=== PATIENT | male | born 1965 | race Caucasian/White ===

== ENCOUNTER 2017-03-21 02:56 | Emergency (ER) | payer OTHER ==
[2017-03-21] MEDS ORDERED: IV NORMAL SALINE 1,000ML 1,000 ML IV SCH (03:10)
[2017-03-21] MEDS ORDERED: 0.9 % SODIUM CHLORIDE 10 ML DISP.SYRIN. IV PRN (03:15)
[2017-03-21] MEDS ORDERED: ONDANSETRON PF 4 MG/2 ML VIAL. IV ONE (03:15)
--- NOTE | 2017-03-21 03:19 | PHYS DOC ---
Past History Past Medical History: High Cholesterol, Hypertension Past Surgical History: Cholecystectomy, Tonsillectomy Smoking: Cigarettes, Greater than 1 pack/day Alcohol Use: Occasionally Drug Use: None Adult General Chief Complaint Chief Complaint: BACK PAIN OR INJURY [facility] HPI This is a pleasant 51-year-old male who presents with abdominal pain that began about 4 weeks prior to his visit today. It began with an episode of pancreatitis for which she was scheduled for a laparoscopic cholecystectomy. Since that time has had repeated episodes and visits to the ER and admitted to the hospital at [facility] on now 7 separate occasions. His chief complaint and being seen for these ER visits was back pain described as dull and achy with wrapping around to his flanks and abdomen. The pain is continuous with episodes of nausea and vomiting nonbilious nonbloody without diarrhea but more constipation. Patient denies any fevers, chills, recent URI symptoms, problems with urination, hematuria or neurologic complaints. Patient systematically had 5 different CAT scans, HIDA scan that was read as normal that significant biliary leak. Patient also had an EGD done and completed by Dr. White GI he also had a lumbar spine CT and MRI demonstrated no specific abdomen bowel is causing his symptoms. At this juncture patient comes in again today because the oxycodone he's presently on is not helping his pain. He feels very nauseated very weak generally is not able to keep food and fluids down. He says that the pain is worse with direct pressure just inferior to his umbilicus on the left. The pain does not radiate and there is no new symptoms today of shortness of breath or chest pain. Review of Systems Review of Systems Constitutional: Denies fever or chills [] Eyes: Denies change in visual acuity, redness, or eye pain [] HENT: Denies nasal congestion or sore throat [] Respiratory: Denies cough or shortness of breath [] Cardiovascular: No additional information not addressed in HPI [] GI: His main complaint is abdominal pain with nausea and vomiting and constipation without diarrhea. : Denies dysuria or hematuria [] Musculoskeletal: He does complain of chronic back pain but this back pain is progressively worse over last 4 weeks. Integument: Denies rash or skin lesions [] Neurologic: Denies headache, focal weakness or sensory changes [] Endocrine: Denies polyuria or polydipsia [] Current Medications Current Medications Current Medications Medications (Trade) Dose Ordered Sig/Gibran Start Time Stop Time Status Last Admin Dose Admin Ondansetron HCl (Zofran) 4 mg 1X ONCE 03/21/17 03:15 03/21/17 03:16 UNV Sodium Chloride (Normal Saline Flush) 10 ml QSHIFT PRN 03/21/17 03:15 UNV Physical Exam Physical Exam Constitutional: Well developed, well nourished, patient is also comfortable. Try and dehydrated in appearance HENT: Normocephalic, atraumatic, bilateral external ears normal, very dry tacky mucous membranes no oral exudates, nose normal. [] Eyes: PERRLA, EOMI, conjunctiva normal, no discharge. [] Neck: Normal range of motion, no tenderness, supple, no stridor. [] Cardiovascular:Heart rate regular rhythm, no murmur [] Lungs & Thorax: She does have a slight wheeze with exhalation. Abdomen: Patient has normal bowel sounds soft tender 3-4 cm left of the umbilicus. There is no guarding rebound or organomegaly. The wounds from his laparoscopic procedure well healing. Skin: Warm, dry, no erythema, no rash. [] Back: Patient is a tenderness in the mid thoracic and lower lumbar spine nothing midline not reproducible on exam. Extremities: No tenderness, no cyanosis, no clubbing, ROM intact, no edema. [] Neurologic: Alert and oriented X 3, normal motor function, normal sensory function, no focal deficits noted. [] Psychologic: Affect normal, judgement normal, mood normal. [] Current Patient Data Lab Results Laboratory Tests Test 03/21/17 03:13 White Blood Count 11.1 x10^3/uL (4.0-11.0) H Red Blood Count 5.53 x10^6/uL (4.30-5.70) Hemoglobin 16.4 g/dL (13.0-17.5) Hematocrit 47.1 % (39.0-53.0) Mean Corpuscular Volume 85 fL (79-100) Mean Corpuscular Hemoglobin 30 pg (25-35) Mean Corpuscular Hemoglobin Concent 35 g/dL (31-37) Red Cell Distribution Width 13.9 % (11.5-14.5) Platelet Count 216 x10^3/uL (140-400) Neutrophils (%) (Auto) 64 % (31-73) Lymphocytes (%) (Auto) 24 % (24-48) Monocytes (%) (Auto) 9 % (0-9) Eosinophils (%) (Auto) 2 % (0-3) Basophils (%) (Auto) 1 % (0-3) Neutrophils # (Auto) 7.1 x10^3uL (1.8-7.7) Lymphocytes # (Auto) 2.7 x10^3/uL (1.0-4.8) Monocytes # (Auto) 1.0 x10^3/uL (0.0-1.1) Eosinophils # (Auto) 0.2 x10^3/uL (0.0-0.7) Basophils # (Auto) 0.1 x10^3/uL (0.0-0.2) EKG EKG EKG timed 3:[address] Fagan for 03/21/2017 demonstrates normal sinus rhythm heart rate of 85 there is some movement artifact noted in the precordial leads there is no obvious signs of atrial enlargement or ST segment elevation with an ME. [] Radiology/Procedures Radiology/Procedures [] IMAGING REPORT Signed PATIENT: RYAN LY ACCOUNT: [id number] : 1965 LOCATION: [facility] AGE: 51 SEX: M EXAM STATUS: ADM IN ORD. PHYSICIAN: ZULMA POWERS MD REASON: check for bile leak PROCEDURE: NM HEPATOBILIARY SCAN WO EF Exam performed: Nuclear medicine hepatobiliary scan. Indication: Recent cholecystectomy on 02/21/17, abdominal pain, suspected bile leak. Date of Service:03/03/17. Comparison: Intraoperative quadrant from 02/21/[address] abdomen pelvis from 02/24/17. Discussion: Patient was administered 5.0 mCi of technetium 99 M Choletec and sequential images of the abdomen are obtained. The images demonstrate prompt uptake of the radiotracer by the liver with excretion into the biliary channels. The gallbladder is not seen and is surgically absent. There is presence of small bowel activity starting at 20 minutes. No extravasation of radiotracer to suggest biliary leak is noted. Impression: No convincing evidence of biliary leak noted. DICTATED and SIGNED BY: LAVON HOOD MD DATE: 03/03/17 1017 CC: ZULMA POWERS MD; RIAZ GUIDRY APRN; ARIADNA GOVEA MD ~ Course & Med Decision Making Course & Med Decision Making Pertinent Labs and Imaging studies reviewed. (See chart for details) I have reviewed patient's nursing notes, vital signs, HIDA scan, CT scans, EGD report, MRI report, patient has improved pain on evaluation here in the emergency department. Family and I discussed long-term treatment options to include pain management which he has already seen and had an epidural injection in the past several weeks. Which did not work according to patient patient. This pain management physician was not kind to this patient and he will not be following up with him. He does have a neurologist Dr. Valerio who will attempt to call the morning for follow-up appointment. I did speak at length with patient about my concerns with narcotic use and overuse causing him to be accustomed too large of pain medication doses. At this time over the course of his evaluation he is only had one medication dose of Dilaudid his pain is gone from a 10 to a 2 and is still dropping. We talked about adding an anti-inflammatory NSAID to his regiment he already has Valium oxycodone, hydrocodone of which I believe are not going to help him with his chronic back issues. He is agreed to follow- up with his neurologist and a neurosurgeon after he completes his thoracic spine MRI. 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 Disposition: Follow-up with PCP 24-48 hours with neurology, neurosurgery and pain management follow-up. [] Dragon Disclaimer Dragon Disclaimer This chart was dictated in whole or in part using Voice Recognition software in a busy, high-work load, and often noisy Emergency Department environment. It may contain unintended and wholly unrecognized errors or omissions. Departure Departure: Impression: Primary Impression: Chronic low back pain Additional Impressions: Chronic mid back pain Abdominal pain Disposition: 01 HOME, SELF-CARE Condition: IMPROVED Referrals: RIAZ GUIDRY APRN (PCP) Patient Instructions: Abdominal Pain (Nonspecific), Chronic Back Pain Additional Instructions: I have advised patient of my concerns of chronic narcotic use in the treatment of chronic back pain. Patient and family are willing to listen and help patient manages back pain without narcotics if possible. Please follow-up with your neurologist Dr. Valerio and it is 20-24 hrs. Please return for any new or increasing symptoms or if you have any questions or concerns. We discussed not doing any imaging at this point given the fact the patient has had MRI [address] scans EGD and HIDA scan with the last 4 weeks. He accumulated radiation from the scans is detrimental to his health. He presents on increased risk of cancer. Scripts Naproxen (NAPROSYN) 500 Mg Tablet 1 TAB PO BID, #20 TAB 1 Refill Prov: BRANDON FAGAN MD 03/21/17 Problem Qualifiers BRANDON FAGAN MD March 21, 2017 03:19
[2017-03-21 03:31] LABS: BASO # 0.1 x10^3/uL (0.0-0.2); BASO % 1 % (0-3); EOS # 0.2 x10^3/uL (0.0-0.7); EOS % 2 % (0-3); HEMATOCRIT 47.1 % (39.0-53.0); HEMOGLOBIN 16.4 g/dL (13.0-17.5); LYMPH # 2.7 x10^3/uL (1.0-4.8); LYMPH % 24 % (24-48); MEAN CORPUSCULAR HEMOGLOBIN 30 pg (25-35); MEAN CORPUSCULAR HGB CONC 35 g/dL (31-37); MEAN CORPUSCULAR VOLUME 85 fL (79-100); MONO % 9 % (0-9); NEUT # 7.1 x10^3uL (1.8-7.7); NEUT % 64 % (31-73); PLATELET COUNT 216 x10^3/uL (140-400); RED BLOOD COUNT 5.53 x10^6/uL (4.30-5.70); RED CELL DISTRIBUTION WIDTH 13.9 % (11.5-14.5); WHITE BLOOD COUNT 11.1 x10^3/uL (4.0-11.0)
[2017-03-21 03:42] LABS: BACTERIA,URINE 0 /HPF (0-FEW); BILIRUBIN,URINE NEG (NEG); CLARITY,URINE CLEAR; COLOR,URINE YELLOW; GLUCOSE,URINE 250 mg/dL (NEG); NITRITE,URINE NEG (NEG); RBC,URINE OCC /HPF (0-2); SQUAMOUS EPITHELIAL CELL,UR OCC /LPF; UROBILINOGEN,URINE 0.2 mg/dL (0.2 mg/dL); WBC,URINE OCC /HPF (0-4)
[2017-03-21] MEDS ORDERED: HYDROmorphone PF 1 MG/ML DISP.SYRIN ONE (03:46)
[2017-03-21 03:55] LABS: ALBUMIN 3.9 g/dL (3.4-5.0); CALCIUM 10.3 mg/dL (8.5-10.1); CREATININE 0.9 mg/dL (0.7-1.3); GFR 88.3; POTASSIUM 4.4 mmol/L (3.5-5.1); TOTAL BILIRUBIN 0.3 mg/dL (0.2-1.0); TOTAL PROTEIN 7.8 g/dL (6.4-8.2)
[2017-03-21] MEDS ORDERED: HYDROmorphone PF 2 MG/ML VIAL IV ONE (04:00)
[2017-03-21 04:19] VITALS: BP 151/89
[2017-03-21] MEDS ORDERED: NAPR500T PO (04:19)
[2017-03-21] MEDS ORDERED: KETOROLAC 30 MG/ML VIAL. IV ONE (04:30)
--- NOTE | 2017-03-21 06:46 | EKG ---
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
== END 2017-03-21 04:30 | disposition home or self-care (01) ==
LOC: ER 02:56
DX: M54.5 Low back pain (principal); G89.29 Other chronic pain; R10.33 Periumbilical pain; E78.00 Pure hypercholesterolemia, unspecified; I10 Essential (primary) hypertension; F17.210 Nicotine dependence, cigarettes, uncomplicated; Z90.49 Acquired absence of other specified parts of digestive tract
CPT/HCPCS: 36415; 80053; 81001; 82553; 83690; 84484; 85027; 93005; 96361; 96374; 96375; 99285; J1170; J1885; J2405; J7030

== ENCOUNTER 2017-03-30 10:03 | Emergency (ER) | payer OTHER ==
[~2017-03-30 10:03] MED LIST: NAPR500T PO
[2017-03-30 10:46] VITALS: BP 156/83
--- NOTE | 2017-03-30 11:03 | PHYS DOC ---
General Chief Complaint: SEIZURE Stated Complaint: SEIZURE Time Seen by MD: 10:29 Source: patient, family Exam Limitations: no limitations Problems: History of Present Illness Initial Comments Patient is a 51-year-old male with history of seizure disorder brought to the ED with breakthrough seizure. Patient is here with his spouse, they state that while sitting in his recliner watching TV he had a "15 second seizure" observed by family members. No incontinence minor postictal symptoms afterwards, patient did have headache but denies focal weakness. Patient has history of seizure disorder and he follows with Dr. Valerio as his neurologist. He says recently he was changed from Depakote to Lamictal and hasn't had a seizure in greater than 15 years. He's had no head imaging in about that time he says. No unexplained weight loss or night sweats no new or progressive symptoms. No complaints on arrival to the ED no pain nausea or focal weakness confusion or other symptoms. Timing/Duration: 1/2 hour Severity: moderate Modifying Factors: improves with other Associated Symptoms: headaches, seizure Allergies: Coded Allergies: No Known Drug Allergies (Unverified , 03/21/17) Past Medical History Medical History: other (pancreatitis, hyperlipidemia, hypertension, diabetes, seizure) Surgical History: noncontributory (tonsillectomy, cholecystectomy) Social History Smoker: greater than 1 pack/day Alcohol: occasionally Drugs: none Review of Systems Constitutional: see HPI, denies chills, denies fever EENTM: denies eye pain, denies blurred vision, denies ear pain, denies ear discharge, denies nose pain, denies nose congestion, denies throat pain, denies throat swelling Respiratory: denies cough, denies shortness of breath, denies wheezing Cardiovascular: see HPI, denies chest pain, denies palpitations Gastrointestinal: denies abdominal pain, denies diarrhea, denies vomiting Genitourinary: denies dysuria, denies frequency, denies hematuria Musculoskeletal: denies back pain, denies joint swelling, denies neck pain Psychiatric/Neurological: see HPI Physical Exam General Appearance: WD/WN, no apparent distress Eyes: bilateral eye normal inspection, bilateral eye PERRL, bilateral eye EOMI Ear, Nose, Throat: hearing grossly normal, normal ENT inspection, normal pharynx Neck: non-tender, supple Respiratory: normal breath sounds, no respiratory distress Cardiovascular: normal peripheral pulses, regular rate, rhythm Gastrointestinal: non tender, soft Extremities: normal range of motion, non-tender, normal inspection 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 PHYSICIAN: DYLON PINTO DO REASON: breakthru seizure no imaging PROCEDURE: CT HEAD WO CONTRAST CT of the head without contrast, 03/30/2017: History: Seizure, epilepsy The ventricles are within normal limits in size. There is no shift of the midline structures. There is no evidence of acute intracranial hemorrhage or mass effect. IMPRESSION: No acute intracranial abnormality is detected. PQRS Compliance Statement: One or more of the following individualized dose reduction techniques were utilized for this examination: 1. Automated exposure control 2. Adjustment of the mA and/or kV according to patient size 3. Use of iterative reconstruction technique DICTATED AND SIGNED BY: BESSY GREENBERG MD DATE: 03/30/171103 CC: RIAZ GUIDRY APRN; DYLON PINTO DO ~ ED workup is reassuring, lactic acid 10 1229: I discussed the patient with Dr. Valerio patient's neurologist. He requested that we draw a Lamictal level, increase daily Lamictal dosing to 150 mg twice daily, have patient follow-up with him in his office in 3-4 weeks. I discussed this with the patient he is agreeable. Departure Time of Disposition: 12:30 Disposition: 01 HOME, SELF-CARE Diagnosis: breakthrough seizure Condition: STABLE Patient Instructions: Seizure, Adult Additional Instructions: No driving or operating machinery until cleared by your doctor. Increase daily Lamictal dosing to 150 mg twice daily. Follow-up with Dr. Valerio in 3-4 weeks at his office, call to schedule appointment. Return to the ED with new or changing symptoms. DYLON PINTO DO Mar 30, 2017 11:03
--- NOTE | 2017-03-30 11:08 | RAD ---
CT of the head without contrast, 03/30/2017: History: Seizure, epilepsy The ventricles are within normal limits in size. There is no shift of the midline structures. There is no evidence of acute intracranial hemorrhage or mass effect. IMPRESSION: No acute intracranial abnormality is detected. PQRS Compliance Statement: One or more of the following individualized dose reduction techniques were utilized for this examination: 1. Automated exposure control 2. Adjustment of the mA and/or kV according to patient size 3. Use of iterative reconstruction technique
--- NOTE | 2017-03-30 11:09 | ACF ---
Admission Criteria Forms SEIZURE Clinical Indications for Admission to Inpatient Care (Place 'X' for any and all applicable criteria): Admission is indicated for seizure and ANY ONE of the following(1)(2)(3)(4)(5): [ ]I. Inpatient admission required rather than observation care (Also use Seizure: Observation Care Criteria as appropriate) because of ANY ONE of the following: [ ]a) Altered mental status that is severe or persistent [ ]b) New focal neurologic deficit that is severe or persistent [ ]c) Metabolic disorder (eg, hypoglycemia, hyponatremia) that is severe or persistent [ ]d) Recurrent seizure [ ]e) Outpatient antiseizure regimen cannot be established (eg , patient cannot tolerate medication, initiation requires inpatient care) [ ]f) Need for ongoing intravenous infusion of antiseizure medication [ ]g) Cardiac arrhythmias of immediate concern [ ]h) Cerebral bleeding, hydrocephalus, or vasospasm monitoring (14) [ ]i) Increased intracranial pressure or cerebral edema monitoring (15) [ ]j) Other treatment or monitoring requiring inpatient admission [ ]II. Status epilepticus [A] or repetitive seizures not controlled with emergent treatment (6)(8) [ ]III. Brain disorder (eg, tumor, edema, and hydrocephalus) that requiring monitoring or intervention available only at inpatient level of care. [ ]IV. Brain insult (eg, severe trauma, stroke, drug toxicity, or withdrawal) that requires monitoring or intervention available only at inpatient level of care (10)(11) Extended stay beyond goal length of stay may be needed for (22) [ ]a) Complications of status epilepticus [ ]b) Refractory status epilepticus [ ]c) Etiology-specific therapy for conditions such as PEDAL ASSEMBLER infection, head injury,eclampsia, severe metabolic abnormalities, and brain tumor [ ]d) Residual neurologic damage, [ ]e) Initiation of significant change to anticonvulsant treatment [ ]f) Older patients (65 years or older) [ ]g) Patient requiring intubation (eg, to protect airway) The original Incoming [employer] content created by [employer] has been revised. The portions of the content which have been revised are identified through the use of italic text or in bold, and [facility] [employer] has neither reviewed nor approved the modified material. All other unmodified content is copyright [facility] [employer]. Please see references footnoted in the original [facility] edition 2016 RAUDEL HINES Mar 30, 2017 11:09
[2017-03-30 11:10] LABS: HEMATOCRIT 47.3 % (39.0-53.0); HEMOGLOBIN 15.7 g/dL (13.0-17.5); MEAN CORPUSCULAR HEMOGLOBIN 29 pg (25-35); MEAN CORPUSCULAR HGB CONC 33 g/dL (31-37); MEAN CORPUSCULAR VOLUME 87 fL (79-100); PLATELET COUNT 216 x10^3/uL (140-400); RED BLOOD COUNT 5.43 x10^6/uL (4.30-5.70); RED CELL DISTRIBUTION WIDTH 13.7 % (11.5-14.5); WHITE BLOOD COUNT 10.5 x10^3/uL (4.0-11.0)
[2017-03-30 11:18] LABS: GFR 78.2; POTASSIUM 3.8 mmol/L (3.5-5.1)
[2017-03-30 11:53] LABS: % BASOS 1 % (0-3); % EOS 1 % (0-5); % LYMPHS 43 % (24-48); % MONOS 7 % (0-10); % SEGS 48 % (35-66)
[2017-03-30 11:54] LABS: PLT ESTIMATE ADEQUATE (ADEQUATE)
[2017-03-30 12:17] LABS: COLOR,URINE YELLOW
[2017-03-30 12:18] LABS: BILIRUBIN,URINE NEG (NEG); CLARITY,URINE CLEAR; GLUCOSE,URINE NEG (NEG); NITRITE,URINE NEG (NEG); UROBILINOGEN,URINE 0.2 mg/dL (0.2 mg/dL)
[2017-03-30 12:21] LABS: BARBITURATES NEG (NEG); BENZODIAZEPINES POS (NEG); CANNABINOIDS NEG (NEG); COCAINE NEG (NEG); METHADONE NEG (NEG); OPIATES POS (NEG); PHENCYCLIDINE NEG (NEG)
[2017-03-30 12:22] LABS: AMPHETAMINE/METHAMPHETAMINE NEG (NEG)
[2017-03-30 12:26] LABS: BACTERIA,URINE FEW /HPF (0-FEW); HYALINE CASTS, URINE FEW /HPF; RBC,URINE OCC /HPF (0-2); SQUAMOUS EPITHELIAL CELL,UR FEW /LPF
[2017-03-30 12:27] LABS: SPERM,URINE PRESENT /HPF
--- NOTE | 2017-03-30 13:28 | EKG ---
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
== END 2017-03-30 12:35 | disposition home or self-care (01) ==
LOC: ER 10:03
DX: G40.909 Epilepsy, unspecified, not intractable, without status epilepticus (principal); E11.9 Type 2 diabetes mellitus without complications; E78.5 Hyperlipidemia, unspecified; I10 Essential (primary) hypertension; F17.200 Nicotine dependence, unspecified, uncomplicated
CPT/HCPCS: 36415; 70450; 80048; 80175; 80305; 80320; 81001; 82550; 83605; 84484; 85007; 85027; 93005; G0481; 99285-25

== ENCOUNTER 2017-03-30 15:24 | Emergency (ER) | payer OTHER ==
--- NOTE | 2017-03-30 15:48 | PHYS DOC ---
General Chief Complaint: SEIZURE Stated Complaint: SEIZURE Time Seen by MD: 15:31 Source: patient Exam Limitations: no limitations Problems: History of Present Illness Initial Comments Patient is a 51-year-old male presents to the ED by EMS with breakthrough seizure recurrence. Patient was evaluated for breakthrough seizure earlier this morning see my documentation from that visit for further information. After discussing the patient with Dr. Valerio his neurologist the patient was discharged home with an increased dose of Lamictal and instructions to follow-up with Dr. Valerio in his office in 3-4 weeks. Patient states that they picked up his new prescription and he took his new Lamictal dosage and went home. While sitting in the same chair he seized and this morning patient had another short (less than 1 minute) generalized tonic- clonic seizure with spontaneous resolution and a short postictal period. Patient did not lose control of his bowels or bladder and he suffered no injury during the seizure. He complains now only of a mild global headache similar to this morning's no focal weakness he also denies chest pain shortness of breath fever chills sweats myalgias neck stiffness rash. ED vital signs stable Timing/Duration: 1/2 hour Severity: moderate Modifying Factors: improves with other Associated Symptoms: headaches, other Allergies: Coded Allergies: No Known Drug Allergies (Unverified , 03/21/17) Past Medical History Medical History: other (pancreatitis, hyperlipidemia, hypertension, diabetes, seizure, chronic back pain) Surgical History: noncontributory, cholecystectomy, tonsillectomy Social History Smoker: greater than 1 pack/day Alcohol: occasionally Drugs: none Review of Systems Constitutional: denies chills, denies fever, malaise EENTM: denies eye pain, denies blurred vision, denies ear pain, denies nose pain, denies throat swelling Respiratory: denies cough, denies shortness of breath, denies wheezing Cardiovascular: see HPI, denies chest pain, denies palpitations Gastrointestinal: see HPI, denies abdominal pain, denies diarrhea, denies vomiting Musculoskeletal: see HPI, denies muscle stiffness, denies neck pain Psychiatric/Neurological: see HPI, denies numbness, denies paresthesia, denies tingling, denies weakness Physical Exam General Appearance: WD/WN, no apparent distress Eyes: bilateral eye normal inspection, bilateral eye PERRL, bilateral eye EOMI Ear, Nose, Throat: hearing grossly normal, normal ENT inspection, normal pharynx Neck: non-tender, supple Respiratory: normal breath sounds, no respiratory distress Cardiovascular: normal peripheral pulses, regular rate, rhythm Gastrointestinal: non tender, soft Back: no CVA tenderness, no vertebral tenderness Extremities: non-tender, normal inspection 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 Valerio his neurologist. After discussing another breakthrough seizure Dr. Valerio requests that the patient come to his office for evaluation 10:15 tomorrow morning. In the interim he requests we give 7.5 mg by mouth of Tranxene and sent him with a prescription for this medication twice daily. He wanted to stress that the patient needs to doses today. Further breakthrough seizures consistent with these can be managed at home, he requests patient call 911 if seizures last more than 2 minutes. I discussed this with the patient he expressed agreement and understanding. Again I advised the patient to discontinue tobacco abuse. 1601: Tranxene is not available at this facility, pharmacy recommends lorazepam 1 mg as substitute. Departure Time of Disposition: 15:57 Disposition: 01 HOME, SELF-CARE Diagnosis: breakthrough seizure, tobaccoism Condition: STABLE Patient Instructions: Seizure, Adult, [id number], Smokeless Tobacco Use Additional Instructions: Remaining with a responsible adult at all times tonight and until neurology follow-up. Stop smoking significant medical assistance if necessary. Aggressive hydration with Gatorade or water. [id number] Tylenol as needed for discomfort. Prescription: Tranxene 7.5 mg take 1 twice daily in addition to your currently prescribed medications. No swimming, driving or operating machinery until cleared by neurology. Follow-up with Dr. Valerio at his office tomorrow morning at 10:15. Return to the ED with new or changing symptoms DYLON PINTO DO Mar 30, 2017 15:48
[2017-03-30 16:02] VITALS: BP 148/80
[2017-03-30] MEDS ORDERED: LORazepam 1 MG TABLET PO ONE (16:30)
== END 2017-03-30 16:27 | disposition home or self-care (01) ==
LOC: ER 15:24
DX: G40.89 Other seizures (principal); E11.9 Type 2 diabetes mellitus without complications; I10 Essential (primary) hypertension; E78.5 Hyperlipidemia, unspecified; G89.29 Other chronic pain; F17.200 Nicotine dependence, unspecified, uncomplicated
CPT/HCPCS: 99283; 99284

== ENCOUNTER → 2017-04-05 | Outpatient (CLI) | payer OTHER ==
[2017-03-30 16:02] VITALS: BP 148/80
== END | disposition home or self-care (01) ==
LOC: LAB 14:51
PROVIDERS: ATTEND Psychiatry & Neurology Neurology with Special Qualifications in Child Neurology
DX: G40.309 Generalized idiopathic epilepsy and epileptic syndromes, not intractable, without status epilepticus (principal)
CPT/HCPCS: 36415; 80175

== ENCOUNTER 2017-04-10 03:28 | Emergency (ER) | payer OTHER ==
[2017-04-10 03:50] VITALS: BP 130/83
[2017-04-10] MEDS ORDERED: KETOROLAC 30 MG/ML VIAL. IM ONE (04:30)
--- NOTE | 2017-04-10 04:34 | PHYS DOC ---
Past History Past Medical History: Diabetes, High Cholesterol, Hypertension, Pancreatitis, Seizure, Other Past Surgical History: Cholecystectomy, Tonsillectomy, Other Smoking: Cigarettes, Greater than 1 pack/day Alcohol Use: None Drug Use: None Adult General Chief Complaint Chief Complaint: BACK PAIN - NO INJURY HPI HPI Patient is a 51-year-old gentleman who presents here today complaining of lower thoracic pain. Patient reports she's had this pain for over a month at this point. Patient reports that they removed his gallbladder approximately a month ago and has been having pain to his lower thoracic spine since then. Patient reports she's had multiple visits to multiple hospitals in order to help determine what is causing this pain. Patient appears to be admitted multiple times at [facility] for pain management. Patient has been seen by electrostatic paint operator while at [facility]. Patient has declined injections in the past. Patient had an MRI of his lumbar spine during his last admission to [facility] and was unremarkable. Patient appears to have an extensive workup including multiple CT scans of his abdomen and pelvis over the last month in order to determine the cause of his pain and no one has been able to figure out the etiology as of yet. Patient presented to [facility] emergency department on April 09, yesterday, and had an extensive workup including labs and a CT scan of his abdomen pelvis all of which were negative. Patient was given a milligram of IV Dilaudid and was discharged home with a prescription of morphine tablets. Patient reports he never filled morphine tablets. Patient came to [facility] ER at approximately 20 3:30 in the morning for further evaluation and assistance with his back pain. Patient reports he did not fill his prescription for morphine because there are no point prior pharmacies around [facility]. Patient did not have a clear explanation as to why he was at [facility] earlier today and did not get his prescription filled while he was in that area. It is also unclear to me why he is at [facility] tonight instead of returning back to [facility] ER where he was at approximately 6 hours ago. In reviewing the patient's K tracks, it appears that he is had approximately 6 different prescriptions for narcotics by 6 different healthcare providers over the last month. I discussed with the patient my huge concern for the potential for narcotic addiction given his pattern of medication prescriptions and the number physicians for managing his chronic pain at this point. Patient became extremely agitated and aggressive and upset that he was being accused of being a "dope addict" from that point forward during her conversation and became extremely confrontational from the patient since he was not able to get beyond the fact that I was concerned that he was developing patterns that would be consistent with someone who is starting to become addicted to narcotics. Although I believe the patient truly does have pain I believe his approach to his pain management least with high risk to become addicted to narcotics. I have attempted to relay this to the patient however every time we have a discussion regarding this he gets extremely agitated and upset and will not listen to anything at this a thereafter. During my conversation with him the patient stood up and said he will leave and he will go get his prescription and get it filled. I stopped the patient the hallway and recommended that I give him a shot of Toradol to initiate treatment of this pain prior to him being discharged. Patient was in agreement with this and went back to his room. During my reevaluation of his chart and putting in a prescription for the Toradol the patient walked at the ER without notifying staff. Patient currently denies any fevers shakes chills nausea vomiting or diarrhea. Patient denies any chest pain or shortness of breath. Patient reports she is tolerating by mouth's. Patient denies any weakness in his upper or lower extremities. Patient is pacing back and forth in the room and appears to be uncomfortable. Patient denies any loss of bowel or bladder function. Patient's physical exam is unremarkable except for his appearance of being in pain. Patient does appear to be uncomfortable due to his back pain. Patient is pacing back and forth in the room. Patient's lungs were clear with no wheezing rales or rhonchi. Patient's heart was regular rate. Patient's abdomen was soft nontender no rebound or guarding. The remainder of the exam was limited secondary to the patient leaving the ER without completing his evaluation. Patient had a nonfocal neuro exam. Review of Systems Review of Systems Constitutional: Denies fever or chills [] Eyes: Denies change in visual acuity, redness, or eye pain [] All other review systems are negative except as documented in the history of present illness portion. Current Medications Current Medications Current Medications Medications (Trade) Dose Ordered Sig/Gibran Start Time Stop Time Status Last Admin Dose Admin Ketorolac Tromethamine (Toradol) 30 mg 1X ONCE 04/10/17 04:30 04/10/17 04:31 Allergies Allergies Allergies Coded Allergies Type Severity Reaction Last Updated Verified No Known Drug Allergies 03/21/17 No Physical Exam Physical Exam Constitutional: Well developed, well nourished, no acute distress, non-toxic appearance. [] HENT: Normocephalic, atraumatic, bilateral external ears normal, oropharynx moist, no oral exudates, nose normal. [] Cardiovascular:Heart rate regular rhythm, Lungs & Thorax: Bilateral breath sounds clear to auscultation [] [] Skin: Warm, dry, no erythema, no rash. [] Extremities: No tenderness, Neurologic: Alert and oriented X 3, normal motor function, normal sensory function, no focal deficits noted. [] Psychologic: Affect normal, Current Patient Data Vital Signs Vital Signs Date Time Temp Pulse Resp B/P (MAP) Pulse Ox O2 Delivery O2 Flow Rate FiO2 04/10/17 03:50 98.4 97 20 98 Room Air EKG EKG [] Radiology/Procedures Radiology/Procedures [] Course & Med Decision Making Course & Med Decision Making Pertinent Labs and Imaging studies reviewed. (See chart for details) [] Dragon Disclaimer Dragon Disclaimer This chart was dictated in whole or in part using Voice Recognition software in a busy, high-work load, and often noisy Emergency Department environment. It may contain unintended and wholly unrecognized errors or omissions. Departure Departure: Impression: Primary Impression: Chronic mid back pain Disposition: 07 AGAINST MEDICAL ADVICE Condition: STABLE Referrals: RIAZ GUIDRY APRN (PCP) SONJA ABDI MD Apr 10, 2017 04:34
== END 2017-04-10 04:05 | disposition left against medical advice (07) ==
LOC: ER 03:28
DX: G89.29 Other chronic pain (principal); M54.6 Pain in thoracic spine; E11.9 Type 2 diabetes mellitus without complications; E78.00 Pure hypercholesterolemia, unspecified; I10 Essential (primary) hypertension; F17.210 Nicotine dependence, cigarettes, uncomplicated
CPT/HCPCS: 99281

== ENCOUNTER 2017-07-03 19:43 | Emergency (ER) | payer OTHER ==
[~2017-07-03] VITALS: Ht 182.9 cm; Wt 88.5 kg
[2017-07-03 19:54] VITALS: BP 137/70
[2017-07-03] MEDS ORDERED: LORazepam 2 MG/ML VIAL IV ONE (20:30)
[2017-07-03 20:33] LABS: BASO # 0.1 x10^3/uL (0.0-0.2); BASO % 1 % (0-3); EOS # 0.3 x10^3/uL (0.0-0.7); EOS % 4 % (0-3); HEMATOCRIT 38.9 % (39.0-53.0); HEMOGLOBIN 13.6 g/dL (13.0-17.5); LYMPH % 30 % (24-48); MEAN CORPUSCULAR HEMOGLOBIN 31 pg (25-35); MEAN CORPUSCULAR HGB CONC 35 g/dL (31-37); MEAN CORPUSCULAR VOLUME 88 fL (79-100); MONO # 0.7 x10^3/uL (0.0-1.1); MONO % 10 % (0-9); NEUT # 3.7 x10^3uL (1.8-7.7); NEUT % 55 % (31-73); PLATELET COUNT 244 x10^3/uL (140-400); RED BLOOD COUNT 4.42 x10^6/uL (4.30-5.70); RED CELL DISTRIBUTION WIDTH 14.1 % (11.5-14.5); WHITE BLOOD COUNT 6.8 x10^3/uL (4.0-11.0)
[2017-07-03 20:41] LABS: ALBUMIN 3.7 g/dL (3.4-5.0); ALBUMIN/GLOBULIN RATIO 1.1 (1.0-1.7); CALCIUM 9.4 mg/dL (8.5-10.1); CREATININE 1.2 mg/dL (0.7-1.3); GFR 63.1; POTASSIUM 4.9 mmol/L (3.5-5.1); TOTAL BILIRUBIN 0.2 mg/dL (0.2-1.0)
[2017-07-03] MEDS ORDERED: oxyCODONE/APAP 5/325 1 TAB TABLET PO ONE (20:45)
[2017-07-03 21:29] LABS: BILIRUBIN,URINE NEG (NEG); CLARITY,URINE CLEAR; COLOR,URINE YELLOW; GLUCOSE,URINE NEG (NEG); UROBILINOGEN,URINE 0.2 mg/dL (0.2 mg/dL)
[2017-07-03 21:30] LABS: BACTERIA,URINE 0 /HPF (0-FEW); NITRITE,URINE NEG (NEG); SQUAMOUS EPITHELIAL CELL,UR FEW /LPF; WBC,URINE OCC /HPF (0-4)
[2017-07-03 21:31] LABS: HYALINE CASTS, URINE FEW /HPF; SPERM,URINE PRESENT /HPF
--- NOTE | 2017-07-04 06:00 | ED.ADGEN ---
Past History Past Medical History: Diabetes, High Cholesterol, Hypertension, Pancreatitis, Seizure Past Surgical History: Cholecystectomy, Tonsillectomy Smoking: Cigarettes, Greater than 1 pack/day Alcohol Use: None Drug Use: None Adult General Chief Complaint Chief Complaint Seizure [facility] HPI Patient is a 52-year-old male with known seizure history compliant with therapy had to breakthrough seizures earlier this evening. Seizures were witnessed tonic -clonic, lasted 2 minutes followed by a brief postictal period resolved prior to ED arrival. Patient was sitting during both episode. During most recent episode, patient struck her case in right arm off bookcase resulting right arm skilled chair. Denies headache, neck pain. Primarily concerned about skin tear to right arm. Tetanus up-to-date [] Review of Systems Review of Systems ROS as per HPI. [] Current Medications Current Medications Current Medications Medications (Trade) Dose Ordered Sig/Gibran Start Time Stop Time Status Last Admin Dose Admin Lorazepam (Ativan) 1 mg 1X ONCE 07/03/17 20:30 07/03/17 20:31 DC 07/03/17 20:40 1 MG Oxycodone/ Acetaminophen (Percocet 5/325) 1 tab 1X ONCE 07/03/17 20:45 07/03/17 20:46 DC 07/03/17 20:50 1 TAB Allergies Allergies Allergies Coded Allergies Type Severity Reaction Last Updated Verified No Known Drug Allergies 03/21/17 No Physical Exam Physical Exam Constitutional: Well developed, well nourished, no acute distress, non-toxic appearance. [] HENT: Normocephalic, on her right orbital contusion, bilateral external ears normal, oropharynx moist, no oral exudates, nose normal. [] Eyes: PERRLA, EOMI, conjunctiva normal, no discharge. [] Neck: Normal range of motion, no tenderness, supple, no stridor. [] Cardiovascular:Heart rate regular rhythm, no murmur [] Lungs & Thorax: Bilateral breath sounds clear to auscultation [] Abdomen: Bowel sounds normal, soft, no tenderness, no masses, no pulsatile masses. [] Skin: Warm, dry, skin tear lateral aspect of right distal forearm/proximal wrist. [] Back: No tenderness, no CVA tenderness. [] Extremities: No tenderness, no cyanosis, no clubbing, ROM intact, no edema. [] Neurologic: Alert and oriented X 3, normal motor function, normal sensory function, no focal deficits noted. [] Psychologic: Affect normal, judgement normal, mood normal. [] Current Patient Data Vital Signs Vital Signs Date Time Temp Pulse Resp B/P (MAP) Pulse Ox O2 Delivery O2 Flow Rate FiO2 07/03/17 20:50 16 07/03/17 19:54 98.8 98 97 Room Air Lab Results Laboratory Tests Test 07/03/17 20:05 07/03/17 20:40 White Blood Count 6.8 x10^3/uL (4.0-11.0) Red Blood Count 4.42 x10^6/uL (4.30-5.70) Hemoglobin 13.6 g/dL (13.0-17.5) Hematocrit 38.9 % (39.0-53.0) L Mean Corpuscular Volume 88 fL (79-100) Mean Corpuscular Hemoglobin 31 pg (25-35) Mean Corpuscular Hemoglobin Concent 35 g/dL (31-37) Red Cell Distribution Width 14.1 % (11.5-14.5) Platelet Count 244 x10^3/uL (140-400) Neutrophils (%) (Auto) 55 % (31-73) Lymphocytes (%) (Auto) 30 % (24-48) Monocytes (%) (Auto) 10 % (0-9) H Eosinophils (%) (Auto) 4 % (0-3) H Basophils (%) (Auto) 1 % (0-3) Neutrophils # (Auto) 3.7 x10^3uL (1.8-7.7) Lymphocytes # (Auto) 2.0 x10^3/uL (1.0-4.8) Monocytes # (Auto) 0.7 x10^3/uL (0.0-1.1) Eosinophils # (Auto) 0.3 x10^3/uL (0.0-0.7) Basophils # (Auto) 0.1 x10^3/uL (0.0-0.2) Sodium Level 138 mmol/L (136-145) Potassium Level 4.9 mmol/L (3.5-5.1) Chloride Level 103 mmol/L (98-107) Carbon Dioxide Level 29 mmol/L (21-32) Anion Gap 6 (6-14) Blood Urea Nitrogen 21 mg/dL (8-26) Creatinine 1.2 mg/dL (0.7-1.3) Estimated GFR (Cockcroft-Gault) 63.1 BUN/Creatinine Ratio 18 (6-20) Glucose Level 146 mg/dL (70-99) H Calcium Level 9.4 mg/dL (8.5-10.1) Total Bilirubin 0.2 mg/dL (0.2-1.0) Aspartate Amino Transferase (AST) 59 U/L (15-37) H Alanine Aminotransferase (ALT) 63 U/L (16-63) Alkaline Phosphatase 145 U/L (46-116) H Total Protein 7.0 g/dL (6.4-8.2) Albumin 3.7 g/dL (3.4-5.0) Albumin/Globulin Ratio 1.1 (1.0-1.7) Urine Collection Type Unknown Urine Color Yellow Urine Clarity Clear Urine pH 7.0 Urine Specific [place] 1.020 Urine Protein 30 mg/dl (NEG-TRACE) Urine Glucose (UA) Neg mg/dL (NEG) Urine Ketones (Stick) Neg mg/dL (NEG) Urine Blood Trace (NEG) Urine Nitrite Neg (NEG) Urine Bilirubin Neg (NEG) Urine Urobilinogen Dipstick 0.2 mg/dL (0.2 mg/dL) Urine Leukocyte Esterase Neg (NEG) Urine RBC 1-2 /HPF (0-2) Urine WBC Occ /HPF (0-4) Urine Squamous Epithelial Cells Few /LPF Urine Bacteria 0 /HPF (0-FEW) Urine Hyaline Casts Few /HPF Urine Mucus Slight /LPF Urine Sperm Present /HPF EKG EKG [] Radiology/Procedures Radiology/Procedures [] Course & Med Decision Making Course & Med Decision Making Pertinent Labs and Imaging studies reviewed. (See chart for details) [Breakthrough seizures skin tear. Wound bandaged. Seizure instructions provided. Follow-up with neurologist. ] Final Impression Final Impression [1. breakthrough seizure 2. right wrist skintear] Problems: Dragon Disclaimer Dragon Disclaimer This electronic medical record was generated, in whole or in part, using a voice recognition dictation system. CLEO RAMOS DO Jul 04, 2017 06:00
== END 2017-07-03 21:17 | disposition home or self-care (01) ==
LOC: ER 19:43
DX: G40.89 Other seizures (principal); S61.511A Laceration without foreign body of right wrist, initial encounter; I10 Essential (primary) hypertension; E11.9 Type 2 diabetes mellitus without complications; E78.00 Pure hypercholesterolemia, unspecified; F17.210 Nicotine dependence, cigarettes, uncomplicated; W22.8XXA Striking against or struck by other objects, initial encounter; Y93.89 Activity, other specified; Y99.8 Other external cause status; Y92.89 Other specified places as the place of occurrence of the external cause
CPT/HCPCS: 80053; 81001; 85025; 96374; 99284; J2060; 36415; 80175

== ENCOUNTER 2021-12-20 05:32 | Emergency (ER) | payer BC, OTHER ==
[~2021-12-20] VITALS: Ht 182.9 cm; Wt 98.1 kg
[~2021-12-20 05:32] MED LIST changes: +NAPR-683 PO; -NAPR500T PO
[2021-12-20 05:36] VITALS: BP 118/60
--- NOTE | 2021-12-20 06:34 | PHYS DOC ---
Past History Past Medical History: Diabetes, High Cholesterol, Hypertension, Pancreatitis, Seizure Past Surgical History: Other Smoking: Cigarettes, Greater than 1 pack/day Alcohol Use: None Drug Use: None General Adult EDM: Chief Complaint: UPPER EXTREMITY PAIN HPI: HPI: Patient is a 56-year-old male coming in for left shoulder pain. Patient states that he has had shoulder pain for the last 2 months that got acutely worse about 12 hours prior to arrival. Patient states he did have an injury to his shoulder 9 months ago where he hit it on a door frame but did not have regular pain after that. Patient states it radiates down to his inner left upper arm. Denies any neck pain. Denies any fevers, chills or other systemic complaints. He is right-handed. He denies any recent injury or heavy lifting or overuse. Review of Systems: Review of Systems: All other systems within normal limits except for as noted in the HPI Current Medications: Current Meds: Current Medications Medications (Trade) Dose Ordered Sig/Gibran Start Time Stop Time Status Last Admin Dose Admin Fentanyl Citrate (Fentanyl 2ml Vial) 75 mcg 1X ONCE 12/20/21 07:00 12/20/21 07:01 Allergies: Allergies: Allergies Coded Allergies Type Severity Reaction Last Updated Verified No Known Drug Allergies 03/21/17 No Physical Exam: PE: Constitutional: Well developed, well nourished, no acute distress, non-toxic appearance. [] HENT: Normocephalic, atraumatic, bilateral external ears normal, nose normal. [] Eyes: PERRLA, conjunctiva normal, no discharge. [] Neck: No rigidity, supple, no stridor. [] Cardiovascular: Regular rate and rhythm, brisk cap refill [] Lungs & Thorax: Non labored symmetric respirations, no tachypnea or respiratory distress [] Abdomen: Soft, nondistended. Skin: Warm, dry, no erythema, no rash. [] Back: Unremarkable Extremities: No deformities, range of motion grossly intact, no lower extremity edema. No obvious joint effusion, tenderness over glenohumeral joint, pain with passive movement. Neurovascular intact distal to pain [] Neurologic: Alert and oriented X 3, no focal deficits noted. [] Psychologic: Affect normal, judgement normal, mood normal. [] Current Patient Data: Vital Signs: Vital Signs Date Time Temp Pulse Resp B/P (MAP) Pulse Ox O2 Delivery O2 Flow Rate FiO2 12/20/21 05:36 98.2 76 20 118/60 (79) 100 Room Air EKG: EKG: Sinus rhythm, heart rate 69 bpm, normal axis, no STEMI [] Radiology/Procedures: Radiology/Procedures: [address] [address] IMAGING REPORT Signed PATIENT: JEAN LY EACCOUNT: [id number] : 1965 LOCATION: ER AGE: 56 SEX: M EXAM STATUS: REG ER ORD. PHYSICIAN: ROSAURA AUSTIN MD REASON: left shoulder pain PROCEDURE: SHOULDER 2+V LEFT EXAM: XR CHEST 1V, XR SHOULDER_LEFT 2+ VIEWS 12/20/2021 6:31 AM CLINICAL INDICATION: Left shoulder pain COMPARISON: None available TECHNIQUE: AP upright view of the chest. AP internal and external rotation vi ews, and scapular Y view of the left shoulder. FINDINGS: Chest: The heart is normal in size. Lungs are well-expanded. No consolidation, pleural effusion, or pneumothorax. There is a metallic density projecting over the center of the chest. No acute osseous abnormality. Left shoulder: No acute fracture or malalignment. The glenohumeral joint is maintained. There is mild acromioclavicular degenerative joint disease. There are calcifications in the rotator cuff or subacromial-subdeltoid bursitis. A 3 mm calcification along the proximal medial humeral shaft may be of loose body in the biceps tendon sheath. IMPRESSION: 1. No acute cardiopulmonary abnormality. 2. No acute osseous abnormality of the left shoulder. 3. Calcific tendinitis or bursitis of left shoulder. 4. Probable 3 mm loose body in the biceps tendon sheath. Electronically signed by: Rosaura Cabrera MD (12/20/2021 7:10 AM) [facility] DICTATED AND SIGNED BY: ROSAURA CABRERA MD DATE: 12/20/21 07 CC: ROSAURA AUSTIN MD; PCP,UNKNOWN ~MTH0 0 [] Heart Score: C/O Chest Pain: No Risk Factors: Risk Factors: DM, Current or recent (<one month) smoker, HTN, HLP, family history of CAD, obesity. Risk Scores: Score 0 - 3: 2.5% MACE over next 6 weeks - Discharge Home Score 4 - 6: 20.3% MACE over next 6 weeks - Admit for Clinical Observation Score 7 - 10: 72.7% MACE over next 6 weeks - Early Invasive Strategies Course & Med Decision Making: Course & Med Decision Making Pertinent Labs and Imaging studies reviewed. (See chart for details) [] Dragon Disclaimer: Dragon Disclaimer: This electronic medical record was generated, in whole or in part, using a voice recognition dictation system. Departure Departure: Impression: Primary Impression: Calcific tendinitis of left shoulder Disposition: HOME / SELF CARE / HOMELESS Condition: STABLE Referrals: RIAZ GUIDRY APRN (PCP) Patient Instructions: Calcific Tendinitis Scripts Oxycodone Hcl/Acetaminophen (PERCOCET 5-325 MG TABLET ) 1 Each Tablet 1 TAB PO PRN Q6HRS PRN for PAIN for 5 Days, #15 TAB Prov: ROSAURA AUSTIN MD 12/20/21 Meloxicam (MELOXICAM) 15 Mg Tablet 1 TAB PO DAILY PRN for PAIN for 14 Days, #14 TAB 0 Refills Prov: ROSAURA AUSTIN MD 12/20/21 ROSAURA AUSTIN MD Dec 20, 2021 06:34
[2021-12-20 06:39] LABS: BASO % 0 % (0-3); EOS # 0.3 x10^3/uL (0.0-0.7); EOS % 4 % (0-3); HEMATOCRIT 43.4 % (39.0-53.0); HEMOGLOBIN 14.5 g/dL (13.0-17.5); LYMPH # 2.5 x10^3/uL (1.0-4.8); LYMPH % 29 % (24-48); MEAN CORPUSCULAR HEMOGLOBIN 30 pg (25-35); MEAN CORPUSCULAR HGB CONC 33 g/dL (31-37); MEAN CORPUSCULAR VOLUME 89 fL (79-100); MONO # 0.9 x10^3/uL (0.0-1.1); MONO % 10 % (0-9); NEUT # 5.1 x10^3uL (1.8-7.7); NEUT % 57 % (31-73); PLATELET COUNT 144 x10^3/uL (140-400); RED BLOOD COUNT 4.86 x10^6/uL (4.30-5.70); RED CELL DISTRIBUTION WIDTH 14.9 % (11.5-14.5); WHITE BLOOD COUNT 8.9 x10^3/uL (4.0-11.0)
[2021-12-20 06:45] LABS: ANION GAP 9 (6-14); BLOOD UREA NITROGEN 27 mg/dL (8-26); BUN/CREATININE RATIO 21 (6-20); CALCIUM 9.6 mg/dL (8.5-10.1); CARBON DIOXIDE 26 mmol/L (21-32); CHLORIDE 103 mmol/L (98-107); CREATININE 1.3 mg/dL (0.7-1.3); GFR 56.7; GLUCOSE 87 mg/dL (70-99); POTASSIUM 4.5 mmol/L (3.5-5.1); SODIUM 138 mmol/L (136-145)
[2021-12-20 06:51] LABS: ALBUMIN 3.6 g/dL (3.4-5.0); ALK PHOS 90 U/L (46-116); ALT (SGPT) 33 U/L (16-63); AST (SGOT) 24 U/L (15-37); TOTAL BILIRUBIN 0.2 mg/dL (0.2-1.0); TOTAL PROTEIN 7.1 g/dL (6.4-8.2)
--- NOTE | 2021-12-20 07:12 | RAD ---
EXAM: XR CHEST 1V, XR SHOULDER_LEFT 2+ VIEWS 12/20/2021 6:31 AM CLINICAL INDICATION: Left shoulder pain COMPARISON: None available TECHNIQUE: AP upright view of the chest. AP internal and external rotation views, and scapular Y vie w of the left shoulder. FINDINGS: Chest: The heart is normal in size. Lungs are well-expanded. No consolidation, pleural effusion, or p neumothorax. There is a metallic density projecting over the center of the chest. No acute osseous ab normality. Left shoulder: No acute fracture or malalignment. The glenohumeral joint is maintained. There is mild acromioclavicular degenerative joint disease. There are calcifications in the rotator cuff or subacr omial-subdeltoid bursitis. A 3 mm calcification along the proximal medial humeral shaft may be of loo se body in the biceps tendon sheath. IMPRESSION: 1. No acute cardiopulmonary abnormality. 2. No acute osseous abnormality of the left shoulder. 3. Calcific tendinitis or bursitis of left shoulder. 4. Probable 3 mm loose body in the biceps tendon sheath. Electronically signed by: Rosaura Cabrera MD (12/20/2021 7:10 AM) ALICIAVALENTIN
[2021-12-20 07:34] LABS: C REACTIVE PROTEIN < 0.5 mg/L (0-3.3)
[2021-12-20] MEDS ORDERED: KETOROLAC 30 MG/ML VIAL. IVP ONE (07:45)
[2021-12-20] MEDS ORDERED: OXYC1TAB15 PO (07:52)
[2021-12-20] MEDS ORDERED: MELO15TA23 PO (07:52)
--- NOTE | 2021-12-20 18:33 | EKG ---
[address] [address] Test Date: 2021-12-20 Test Time: 06:42:41 Pat Name: JEAN LY Department: Room: Gender: M Copy Manager: : 1965 Requested By: CATRACHITA AUSTIN Order Number: [id number] Reading MD: Jose Mancini MD Measurements Intervals [place] Rate: 69 P: VA: QRS: 34 QRSD: 78 T: 49 QT: 372 QTc: 400 Interpretive Statements SR NON-SPECIFIC ST/T CHANGES Electronically Signed On 12-21-2021 11:14:27 PHLEBOTOMIST by Jose Mancini MD
== END 2021-12-20 08:22 | disposition home or self-care (01) ==
LOC: ER 05:32
DX: M75.32 Calcific tendinitis of left shoulder (principal); E11.9 Type 2 diabetes mellitus without complications; E78.00 Pure hypercholesterolemia, unspecified; I10 Essential (primary) hypertension; F17.210 Nicotine dependence, cigarettes, uncomplicated
CPT/HCPCS: 36415; 71045; 73030; 80053; 84484; 85025; 86140; 93005; 96374; 96375; 99285; J1885; J3010